=== PATIENT | male | born 1995 | race Two or more races ===

== ENCOUNTER 2017-12-15 15:56 | Emergency (ER) | payer SELFPAY ==
[~2017-12-15] VITALS: Ht 167.6 cm; Wt 83.9 kg
[2017-12-15 16:00] VITALS: BP 134/67
== END 2017-12-15 16:18 ==
LOC: ER 15:58
DX: S09.8XXA Other specified injuries of head, initial encounter (principal); F15.10 Other stimulant abuse, uncomplicated; Y04.0XXA Assault by unarmed brawl or fight, initial encounter; Y93.89 Activity, other specified; Y92.89 Other specified places as the place of occurrence of the external cause; Y99.8 Other external cause status
CPT/HCPCS: A4606; Z7610